=== PATIENT | female | born 1955 | race Two or more races ===

== ENCOUNTER 2017-02-26 09:01 | Emergency (ER) | payer OTHER ==
--- OUTSIDE RECORDS SUMMARY | 2017-02-26 10:09 | XMS REPORT | Continuity of Care Document ---
:1955 Author Organization [place] [address] Care Team Providers Name Role Phone José Miguel Velez Primary Care Provider [phone] Source Comments This disclosure is being made pursuant to the [employer] program and maynot contain all information available regarding this patient.[facility]o Active Allergies and Adverse Reactions Allergen Noted Date Severity Reactions Comments Augmentin 01/26/2017 Unknown Current Medications Be aware that medications may not be up to date as of this document. Alwaysverify current medications with the patient. Prescription Sig. Disp. Refills Start Date End Date Status glipiZIDE (GLUCOTROL) 5 TAKE 1 60 tablet 3 01/02/2017 Active MG tablet TABLET BY MOUTH TWICE DAILY albuterol (PROAIR Inhale 2 Active HFA;PROVENTIL puffs into HFA;VENTOLIN HFA) 108 the lungs (90 Base) MCG/ACT every 4 inhaler (four) hours as needed for Wheezing. hydrochlorothiazide Take 25 mg Active (HYDRODIURIL) 25 MG by mouth tablet daily. metFORMIN (GLUCOPHAGE) Take 500 mg Active 500 MG tablet by mouth 2 (two) times daily with meals. pravastatin (PRAVACHOL) Take 20 mg Active 20 MG tablet by mouth daily. multivitamin with Take 1 Active minerals (THERA M PLUS) tablet by TABS tablet mouth daily. budesonide-formoterol Inhale 2 Active (SYMBICORT) 160-4.5 puffs into MCG/ACT inhaler the lungs 2 (two) times daily. fluticasone (FLONASE) 50 2 sprays by Active MCG/ACT nasal spray Nasal route daily. to each nostril levothyroxine Take 150 mcg Active (SYNTHROID, LEVOTHROID) by mouth 150 MCG tablet every morning on an empty stomach. levothyroxine TAKE 1 90 tablet 0 02/03/2017 Active (SYNTHROID, LEVOTHROID) TABLET BY 100 MCG tablet MOUTH DAILY levothyroxine Take 100 mcg 01/31/20 Discontinued (SYNTHROID, LEVOTHROID) by mouth 17 100 MCG tablet every morning on an empty stomach. Active Problems Problem Noted Date Wrist pain 01/30/2017 Hypertension Hyperlipidemia Diabetes mellitus (HCC) Postoperative hypothyroidism Most Recent Encounters Date Type Specialty Providers Description 02/03/2017 Refill Family José Miguel Lopez MD 01/31/2017 Orders Only Family Medicine José Miguel Velez, Right wrist pain MD 01/30/2017 Office Visit Family José Miguel Lpoez, Essential hypertension (Primary Dx); Controlled type 2 diabetes mellitus without complication, without long-term current use of insulin (HCC); Mixed hyperlipidemia; Hypothyroidism (acquired); Right wrist pain 01/26/2017 Abstract Family Medicine Danitza Rivera, [employer] 12/31/2016 Refill Family Medicine José Miguel Velez MD Social History Tobacco Use Types Packs/Day Years Used Date Never Smoker Smokeless Tobacco: Never Used Alcohol Use Drinks/Week oz/Week Comments No Last Filed Vital Signs Vital Sign Reading Time Taken Blood Pressure 166/78 01/30/2017 11:34 AM CDT Pulse 79 01/30/2017 11:34 AM CDT Temperature 36.3 C (97.4 F) 01/30/2017 11:34 AM CDT Respiratory Rate 16 01/30/2017 11:34 AM CDT Height 1.676 m (5' 6") 01/30/2017 11:34 AM CDT Weight 75.388 kg (166 lb 3.2 oz) 01/30/2017 11:34 AM CDT Body Mass Index 26.84 01/30/2017 11:34 AM CDT Oxygen Saturation 99% 01/30/2017 11:34 AM CDT Plan of Care Patient Goal Type Goal Blood Pressure Blood Pressure below 140/90 Result Component HEMOGLOBIN A1C < 7.0 Health Maintenance Due Date Last Done Comments Lab-Lipids 1955 LAB-HgA1C 1959 Eye (Ophthalmology) Exam 1964 Foot Exam 1964 Lab-Urine Microalbumin 1964 Hepatitis C Screening 1972 Pneumococcal Medium Risk 19-64 yo (1 of 1 - PPSV23) 1973 Tetanus/Pertussis (1 - Tdap) 1973 Pap Smear 1975 Colonoscopy 2004 Mammogram 2004 Well Adult Visit 2004 Zoster Vaccine 60+ 2014 Influenza Immunization (#1) 2016 Results from Last 3 Months XR FOREARM 2 VIEWS (01/30/2017)XR WRIST 2 VIEWS (01/30/2017)
--- OUTSIDE RECORDS SUMMARY | 2017-02-26 10:09 | XMS REPORT | Continuity of Care Document ---
:1955 Author Organization [facility] ([facility]) Address [address] [place] [address] Phone [phone] Care Team Providers Name Role Phone José Miguel Velez Primary Care Provider [phone] Source Comments This disclosure is being made pursuant to the Care Everywhere program, applicable federal and state laws, and may not contain all informaitonavailable regarding this patient.[facility] ([facility]) Active Allergies and Adverse Reactions Allergen Noted Date Severity Reactions Comments Amoxicillin-Pot 11/22/2012 Nausea & Tongue swelling Clavulanate Vomiting,Urticaria (Hives),Angioedema C[place]ut 11/22/2012 Nausea & Vomiting Hydrocodone-Acetaminophen 02/28/2014 Nausea & Vomiting Current Medications Prescription Sig. Disp. Refills Start Date End Date Status metFORMIN 500 mg XR Take 500 mg by mouth 2 Active tablet times daily. Albuterol, Refill, 90 Use 2 Puffs by Active mcg/Actuation Aero inhalation every 4 hours. MULTIVITAMIN WITH Take 1 Tab by mouth Active MINERALS (ONE-A-DAY daily. 50 PLUS PO) ACETAMINOPHEN Take by mouth as Active (TYLENOL PO) needed. RED YEAST RICE PO Take by mouth daily. Active Fiber, Herbal, Tab Take by mouth daily. Active pravastatin 20 mg Take 20 mg by mouth Active tablet every evening. levothyroxine 50 mcg Take 1 Tab by mouth 90 Tab 4 03/14/2014 Active tablet every morning before breakfast. 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 H/O thyroidectomy 03/29/2014 Laryngitis, chronic 03/29/2014 Non-toxic nodular goiter 01/09/2013 Social History Tobacco Use Types Packs/Day Years Used Date Never Smoker Smokeless Tobacco: Never Used Last Filed Vital Signs Vital Sign Reading Time Taken Blood Pressure 167/81 12/09/2014 10:19 AM [facility] [employer] Pulse 69 12/09/2014 10:19 AM [employer] [employer] Temperature 36.7 C (98.1 F) 12/09/2014 10:19 AM [facility] [employer] Respiratory Rate 16 12/09/2014 10:19 AM [employer] Height 1.685 m (5' 6.34") 06/03/2014 10:08 AM CDT Weight 78.881 kg (173 lb 14.4 oz) 12/09/2014 10:19 AM [employer] [employer] Body Mass Index 27.78 12/09/2014 10:19 AM [employer] [employer] Oxygen Saturation 98% 02/28/2014 11:31 AM CDT Plan of Care Health Maintenance Due Date Last Done Comments HCV Screening 1955 Hepatitis B Vaccine (1 of 3 - Primary Series) 1955 Tdap Vaccine 1965 Lipid Disorder Screening 1972 Td Vaccine 1972 Cervical Cancer Screening 1984 Mammogram 1994 Colonoscopy 11/02/2004 Zoster Vaccine 2014 Influenza Vaccine: Seasonal (#1) 06/13/2016 Results from Last 3 Months Not on file
[2017-02-26 10:21] VITALS: BP 128/88
--- NOTE | 2017-02-26 10:32 | ERNOTE ---
Upper Extremity HPI - Narrative Date of Service: 02/26/17 - General Extremities Pain Location: wrist: right Time Seen by Provider: 02/26/17 10:00 Source: patient - Immun/Allergies/Home Medications Immunizations: IMMUNIZATION HX Immunizations Up to Date Yes: unsure History of Influenza Vaccine No Hx Pneumococcal Vaccination No Allergies/Adverse Reactions: Allergies Allergy/AdvReac Type Severity Reaction Status Date / Time amoxicillin [From Augmentin] Allergy Verified 02/26/17 09:13 clavulanic acid Allergy Verified 02/26/17 09:13 [From Augmentin] Home Medications: HOME MEDICATIONS Acetaminophen [Tylenol] 325 mg PO PRN PRN 09/26/16 [Last Taken Unknown] Albuterol Sulfate [Proair Hfa] 2 puff IH QID PRN 09/26/16 [Last Taken Unknown] Cyclobenzaprine HCl 10 mg PO PRN PRN 09/26/16 [Last Taken Unknown] Hydrochlorothiazide [Hydrodiuril] 20 mg PO DAILY 09/26/16 [Last Taken Unknown] Levothyroxine Sodium [Synthroid] 150 mcg PO DAILY 09/26/16 [Last Taken Unknown] Methylcellulose [Fiber] 500 mg PO DAILY 09/26/16 [Last Taken Unknown] Multivitamin [One Daily Essential] 1 each PO DAILY 09/26/16 [Last Taken Unknown] Pravastatin Sodium [Pravachol] 20 mg PO HS 09/26/16 [Last Taken Unknown] glipiZIDE [Glucotrol] 5 mg PO QDIPM 09/26/16 [Last Taken Unknown] metFORMIN HCL [Glucophage] 500 mg PO BID 09/26/16 [Last Taken Unknown] Budesonide/Formoterol Fumarate [Symbicort 160-4.5 Mcg Inhaler] 2 puff IH BID [Last Taken Unknown] Fluticasone Propionate [Flovent Diskus] 50 mcg IH DAILY 02/26/17 [Last Taken Unknown] Ibuprofen [Motrin] 600 mg PO TID PRN #30 tab 02/26/17 [Last Taken Unknown] - History of Present Illness Narrative: FELL LAST NIGHT AND HURT RIGHT WRIST AND IT IS WORSE THIS A.M. Review of Systems - Review of Systems Constitutional: Present: See HPI Musculoskeletal: Present: See HPI, joint pain All Other Systems: All systems neg except as marked - Patient's Past Medical History Patient History - Medical: Diabetes Type 2, Hypothyroidism Patient History - Cardiac/Respiratory: Asthma, Hyperlipidemia Patient History - Cancer: No Hx of Cancer Patient History - Surgical Procedures: Appendectomy Patient History - Other: None - Social History Living Situations: home Psych History: No pertinent hx - Immunizations Immunizations Up to Date: Yes - unsure Hx Pneumococcal Vaccination: No History of Influenza Vaccine: No Physical Exam - Physical Exam General Appearance: Present: wd/wn, alert, no apparent distress Extremity Exam: Present: other - RIGHT WRIST WITH MINIMAL SWELLING AND MODERATE TENDERNESS TO RADIAL ASPECT AND IN SNUFF BOX AREA. NORMAL DISTAL PULSES AND SENSATION . 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 . NO OTHER INJURIES. ED Progress - Vital Signs Vital Signs: Vital Signs 02/26/17 02/26/17 09:08 10:21 Temperature 36.2 C L Pulse Rate 72 84 Respiratory 12 12 Rate Blood Pressure 158/72 128/88 O2 Sat by Pulse 97 98 Oximetry - X-Ray X-Ray #1 X-Ray: wrist - RIGHT WRIST AND FOREARM = NO DEFINITE FX SEEN Interpretation: Interp. by me - Progress/Reassessment Chief Complaint: Wrist Injury/Pain Procedures Pre-Proc Neuro Vasc Exam: normal Hand-Made Type: orthoglass Splint: thumb spica Splint applied by: Nurse Post-Proc Neuro Vasc Exam: normal Complications: Pt aguila procedure well Departure Clinical Impression: Occult fracture of scaphoid bone of right wrist Right wrist sprain Qualifiers: Encounter type: initial encounter Qualified Code(s): S63.501A - Unspecified sprain of right wrist, initial encounter - Departure Disposition: Home Follow Up Needed Condition: Good Instructions: Wrist Fracture Treated With Immobilization, [id number] Additional Instructions: THERE IS NO DEFINITE FRACTURE ON THE XRAY BUT BECAUSE WHERE YOUR PAIN IS LOCATED I HAVE SPLINTED YOUR WRIST AND YOU NEED TO GET RECHECKED BY YOUR FAMILY DOCTOR IN 10 DAYS TO SEE IF A REPEAT XRAY IS NEED. SPLINT CARE. ELEVATE ICE AND TYLENOL OR IBUPROPHEN. Referrals: José Miguel Velez MD [Primary Care Provider] - Prescriptions: Ibuprofen [Motrin] 600 mg PO TID PRN #30 tab PRN Reason: Pain
== END 2017-02-26 11:11 | disposition home or self-care (01) ==
LOC: ER 09:01
PROC: 2W3GX1Z Immobilization of Right Thumb using Splint (ICD-10-PCS; principal; 2017-02-26)
DX: S62.001A Unspecified fracture of navicular [scaphoid] bone of right wrist, initial encounter for closed fracture (principal); S63.501A Unspecified sprain of right wrist, initial encounter; E11.9 Type 2 diabetes mellitus without complications; E03.9 Hypothyroidism, unspecified; J45.909 Unspecified asthma, uncomplicated; E78.5 Hyperlipidemia, unspecified; W19.XXXA Unspecified fall, initial encounter